=== PATIENT | female | born 1985 | race Hispanic/Latino ===

== ENCOUNTER 2018-02-11 12:16 | Emergency (ER) | payer OTHER, SELFPAY ==
[2018-02-11] MEDS ORDERED: HYDROMORPHONE HCL 1 MG/ML INJ ONE (12:33)
[2018-02-11] MEDS ORDERED: HYDROMORPHONE HCL 0.5 MG/0.5 ML INJ ONE (12:34)
[2018-02-11] MEDS ORDERED: predniSONE 20 MG TAB ONE (12:35)
--- NOTE | 2018-02-11 13:12 | EDPHYS ---
Physician Documentation [facility] Name: Nnacy Duarte Age: 32 yrs Sex: Female : 1985 Arrival Date: 02/11/2018 Time: 12:17 Bed 5 Private MD: ED Physician Jluis Pantoja HPI: 02/11 13:06 This 32 yrs old Female presents to ER via Stretcher with complaints of Back gs Pain. 13:06 The patient presents with pain that is acute. The symptoms are located in the low back. gs Onset: The symptoms/episode began/occurred acutely, 3 day(s) ago, and became worse. The pain radiates to the lateral aspect of right thigh. Associated signs and symptoms: Pertinent negatives: constipation, incontinence, urinary retention. Modifying factors: the patient symptoms are aggravated by any movement, bending. Severity of symptoms: At their worst the symptoms were severe, in the emergency department the symptoms are unchanged. The patient has experienced similar episodes in the past, a few times. Historical: - Allergies: 12:20 No Known Allergies; rk2 - PSHx: 12:54 Cholecystectomy; ; umbilical hernia repair; sg - Immunization history:: Adult Immunizations up to date, Pneumococcal vaccine is not up to date, Flu vaccine is not up to date. - Ebola Screening: : Patient negative for fever greater than or equal to 101.5 degrees Fahrenheit, and additional compatible Ebola Virus Disease symptoms. - Social history:: Smoking status: Patient/guardian denies using tobacco. ROS: 13:06 All other systems are negative. gs Exam: 13:06 Head/Face: Normocephalic, atraumatic. Eyes: Pupils equal round and reactive to light, gs extra-ocular motions intact. Lids and lashes normal. Conjunctiva and sclera are non-icteric and not injected. Cornea within normal limits. Periorbital areas with no swelling, redness, or edema. ENT: Nares patent. No nasal discharge, no septal abnormalities noted. Tympanic membranes are normal and external auditory canals are clear. Oropharynx with no redness, swelling, or masses, exudates, or evidence of obstruction, uvula midline. Mucous membranes moist. Neck: Trachea midline, no thyromegaly or masses palpated, and no cervical lymphadenopathy. Supple, full range of motion without nuchal rigidity, or vertebral point tenderness. No Meningismus. Chest/axilla: Normal chest wall appearance and motion. Nontender with no deformity. No lesions are appreciated. Cardiovascular: Regular rate and rhythm with a normal S1 and S2. No gallops, murmurs, or rubs. Normal PMI, no JVD. No pulse deficits. Respiratory: Lungs have equal breath sounds bilaterally, clear to auscultation and percussion. No rales, rhonchi or wheezes noted. No increased work of breathing, no retractions or nasal flaring. Abdomen/GI: Soft, non-tender, with normal bowel sounds. No distension or tympany. No guarding or rebound. No evidence of tenderness throughout. Skin: Warm, dry with normal turgor. Normal color with no rashes, no lesions, and no evidence of cellulitis. 13:06 Constitutional: The patient appears alert, awake, uncomfortable. 13:06 Back: pain, that is moderate, of the right low back, Straight leg raises: right lower extremity illicits pain, at 30 degrees. 13:06 Musculoskeletal/extremity: Circulation is intact in all extremities. Sensation intact. 13:06 Neuro: Cranial nerves: grossly normal, Cerebellar function: is grossly normal, Motor: is normal, strength is normal, Sensation: no obvious gross deficits, no acute changes, pin prick testing is normal, Deep tendon reflexes are 2+ (normal) in the right patellar, right Achilles, left patellar and left Achilles. Vital Signs: 12:20 BP 157 / 108; Pulse 94; Resp 19; Temp 98.0; Pulse Ox 99% on R/A; Weight 145.15 kg; rk2 MDM: 12:26 Patient medically screened. 13:06 Differential diagnosis: chronic back pain, ruptured disc, sprain. Data reviewed: vital gs signs, nurses notes. Response to treatment: the patient's symptoms have markedly improved after treatment, and as a result, I will discharge patient. 14:05 Counseling: I had a detailed discussion with the patient and/or guardian regarding: the gs presence of at least one elevated blood pressure reading (>120/80) during this emergency department visit. Special discussion: I have referred the patient to see his PCP for further evaluation of high blood pressure. Administered Medications: 12:38 Drug: predniSONE 40 mg Route: PO; sg 15:43 Follow up: Response: No adverse reaction; Pain is decreased ss 12:38 Drug: Dilaudid 1.5 mg Route: IM; Site: right deltoid; sg 15:43 Follow up: Response: No adverse reaction; Pain is decreased ss Disposition: 02/11/18 13:12 Discharged to Home. Impression: Radiculopathy, lumbosacral region. - Condition is Stable. - Discharge Instructions: Lumbosacral Radiculopathy. - Prescriptions for Naprosyn 500 mg Oral Tablet - take 1 tablet by ORAL route 2 times per day take with food; 14 tablet. Prednisone 20 mg Oral Tablet - take 1 tablet by ORAL route once daily for 5 days; 5 tablet. Tylenol- Codeine #4 300-60 mg Oral Tablet - take 1 tablet by ORAL route every 6 hours As needed; 12 tablet. - Medication Reconciliation Form, Thank You Letter, Antibiotic Education, Prescription Opioid Use form. - Follow up: Jordon López MD; When: 2 - 3 days; Reason: Re-evaluation by your physician. Signatures: Jose R Smalls RN RN Diane Ivory RN RN Jluis Pantoja MD MD Lacey Ordoñez RN RN rk2 Corrections: (The following items were deleted from the chart) 15:44 13:12 02/11/2018 13:12 Discharged to Home. Impression: Radiculopathy, lumbosacral ss region. Condition is Stable. Forms are Medication Reconciliation Form, Thank You Letter, Antibiotic Education, Prescription Opioid Use. Follow up: Jordon López; When: 2 - 3 days; Reason: Re-evaluation by your physician.
--- NOTE | 2018-02-11 13:12 | ER ---
Nurse's Notes [facility] Name: Nancy Duarte Age: 32 yrs Sex: Female : 1985 Arrival Date: 02/11/2018 Time: 12:17 Bed 5 Private MD: Diagnosis: Radiculopathy, lumbosacral region Presentation: 02/11 12:18 Presenting complaint: Patient states: pt. arrived by pv. c/o lower back pain radiating rk2 down right leg. Has hx of chronic back pain. Onset x 3 days worse today. Transition of care: patient was not received from another setting of care. Onset of symptoms was February 11, 2018. Risk Assessment: Do you want to hurt yourself or someone else? Patient reports no desire to harm self or others. Initial Sepsis Screen: Does the patient meet any 2 criteria? No. Patient's initial sepsis screen is negative. Does the patient have a suspected source of infection? No. Patient's initial sepsis screen is negative. Care prior to arrival: None. 12:18 Method Of Arrival: Stretcher rk2 12:18 Acuity: NORMA 4 rk2 Triage Assessment: 12:21 General: Appears in no apparent distress. uncomfortable, obese, well nourished, rk2 Behavior is calm, cooperative. Pain: Complains of pain in back. Musculoskeletal: Historical: - Allergies: 12:20 No Known Allergies; rk2 - PSHx: 12:54 Cholecystectomy; ; umbilical hernia repair; sg - Immunization history:: Adult Immunizations up to date, Pneumococcal vaccine is not up to date, Flu vaccine is not up to date. - Ebola Screening: : Patient negative for fever greater than or equal to 101.5 degrees Fahrenheit, and additional compatible Ebola Virus Disease symptoms. - Social history:: Smoking status: Patient/guardian denies using tobacco. Screenin:43 Abuse screen: Denies threats or abuse. Denies injuries from another. Nutritional ss screening: No deficits noted. Tuberculosis screening: Never had TB. Fall Risk None identified. Assessment: 12:45 General: Appears in no apparent distress. comfortable, well groomed, well developed, sg well nourished, Behavior is calm, cooperative, appropriate for age. Pain: Complains of pain in back Pain does not radiate. Quality of pain is described as aching, sharp, stabbing. Neuro: Level of Consciousness is awake, alert, obeys commands, Oriented to person, place, time, situation, Microphone Operator are equal bilaterally Moves all extremities. Full function Gait is steady, Speech is normal, Facial symmetry appears normal. Cardiovascular: Heart tones S1 S2 present Capillary refill is brisk in bilateral fingers Patient's skin is warm and dry. Chest pain is denied. Respiratory: Airway is patent Respiratory effort is even, unlabored, Respiratory pattern is regular, symmetrical, Breath sounds are clear. GI: No signs and/or symptoms were reported involving the gastrointestinal system. : No signs and/or symptoms were reported regarding the genitourinary system. EENT: No signs and/or symptoms were reported regarding the EENT system. Derm: Skin is pink, warm \T\ dry. Musculoskeletal: Circulation, motion, and sensation intact. Range of motion: intact in all extremities, Swelling absent Reports pain in back. 13:14 Reassessment: attempted to get pt up to ambulate prior to dc to home, pt unable to get sg out of bed at this time, will try again. Vital Signs: 12:20 BP 157 / 108; Pulse 94; Resp 19; Temp 98.0; Pulse Ox 99% on R/A; Weight 145.15 kg; rk2 ED Course: 12:17 Patient arrived in ED. ss 12:18 Jluis Pantoja MD is Attending Physician. gs 12:20 Triage completed. rk2 12:41 Jose R Smalls, LESLIE is Primary Nurse. sg 12:45 No provider procedures requiring assistance completed. Patient did not have IV access sg during this emergency room visit. 12:45 Patient has correct armband on for positive identification. Placed in gown. Bed in low sg position. Side rails up X2. 13:09 Jordon López MD is Referral Physician. gs 15:42 walker given to patient on discharge per Dr. Pantoja request. ss Administered Medications: 12:38 Drug: predniSONE 40 mg Route: PO; sg 15:43 Follow up: Response: No adverse reaction; Pain is decreased ss 12:38 Drug: Dilaudid 1.5 mg Route: IM; Site: right deltoid; sg 15:43 Follow up: Response: No adverse reaction; Pain is decreased ss Outcome: 13:12 Discharge ordered by . gs 15:42 Discharged to home via wheelchair. ss 15:42 Condition: good 15:42 Discharge instructions given to patient, family, Instructed on discharge instructions, follow up and referral plans. medication usage, Demonstrated understanding of instructions, follow-up care, medications, Prescriptions given X 3. 15:44 Patient left the ED. Signatures: Jose R Smalls RN RN sg Diane Ivory RN RN ss Jluis Pantoja MD MD Lacey Ordoñez RN RN rk2
[2018-02-11] MEDS ORDERED: ONDANSETRON 4 MG/2 ML VIAL ONE (14:30)
[2018-02-11] MEDS ORDERED: ONDANSETRON 4 MG (ODT) TAB ONE (14:30)
== END 2018-02-11 15:44 | disposition home or self-care (01) ==
LOC: ER 12:16
DX: M54.17 Radiculopathy, lumbosacral region (principal)
CPT/HCPCS: 96372; 99283; J1170; J2405; J7512

== ENCOUNTER 2021-06-15 11:03 | Emergency (ER) | payer BC ==
[2021-06-15] MEDS ORDERED: ACETAMINOPHEN 325 MG TABLET ONE (13:28)
[2021-06-15 14:08] LABS: Urine Blood Negative (Negative); Urine Glucose Negative (Negative); Urine Protein 2+ (Negative); Urine Specific Gravity >=1.030 (1.005-1.030); Urine pH 5.5 (5.0-7.0)
[2021-06-15 14:23] LABS: Urine Specific Gravity/Preg >1.030 (1.005-1.030)
[2021-06-15] MEDS ORDERED: KETOROLAC 30 MG/ML INJ ONE (14:38)
--- NOTE | 2021-06-15 14:46 | ER ---
Nurse's Notes [facility] Name: Nancy Duarte Age: 36 yrs Sex: Female : 1985 Arrival Date: 06/15/2021 Time: 11:08 Bed 12 Private MD: Ayaka Diaz Diagnosis: Other sprain of left foot Presentation: 06/15 11:31 Chief complaint: Patient states: About an hour ago pt tripped over a cat and states vg1 rolled Left ankle inward and when stepped forward heard a 'crunch' and felt it near the top side of Left foot. States is unable to move left big toe. Coronavirus screen: Vaccine status: Patient reports receiving the 2nd dose of the covid vaccine. Ebola Screen: Patient negative for fever greater than or equal to 101.5 degrees Fahrenheit, and additional compatible Ebola Virus Disease symptoms. Initial Sepsis Screen: Does the patient meet any 2 criteria? No. Patient's initial sepsis screen is negative. Does the patient have a suspected source of infection? No. Patient's initial sepsis screen is negative. Risk Assessment: Do you want to hurt yourself or someone else? Patient reports no desire to harm self or others. Onset of symptoms was June 15, 2021. 11:31 Method Of Arrival: Wheelchair vg1 11:31 Acuity: NORMA 4 vg1 Triage Assessment: 11:33 General: Appears in no apparent distress. uncomfortable, Behavior is calm, cooperative. vg1 Pain: Complains of pain in dorsum of left foot. Musculoskeletal: Circulation, motion, and sensation intact. 15:48 Injury Description: Bruise. 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 - Social history:: Smoking status: Patient denies any tobacco usage or history of. Screenin:23 Abuse screen: Denies threats or abuse. Nutritional screening: No deficits noted. ll1 Tuberculosis screening: No symptoms or risk factors identified. Fall Risk Ambulatory Aid- Crutches/Cane/Walker (15 pts). Gait- Impaired (20 pts.). Total [place] Fall Scale indicates Low Risk Score (25-44 pts). Fall prevention measures have been instituted. Side Rails Up X 2 Frequent Obs/Assesments occuring As available Patient and Family Educated on Fall Prevention Program and strategies. Assessment: 12:30 Reassessment: No changes from previously documented assessment. Patient and/or family ll1 updated on plan of care and expected duration. Pain level reassessed. Patient is alert, oriented x 3, equal unlabored respirations, skin warm/dry/pink. 13:30 Reassessment: No changes from previously documented assessment. Patient and/or family ll1 updated on plan of care and expected duration. Pain level reassessed. Patient is alert, oriented x 3, equal unlabored respirations, skin warm/dry/pink. 14:30 Reassessment: No changes from previously documented assessment. Patient and/or family ll1 updated on plan of care and expected duration. Pain level reassessed. Patient is alert, oriented x 3, equal unlabored respirations, skin warm/dry/pink. 15:23 Reassessment: No changes from previously documented assessment. Patient and/or family ll1 updated on plan of care and expected duration. Pain level reassessed. Patient is alert, oriented x 3, equal unlabored respirations, skin warm/dry/pink. Vital Signs: 11:31 BP 136 / 80; Pulse 104; Resp 18; Temp 97.8; Pulse Ox 100% ; Weight 153.31 kg; Height 5 vg1 ft. 6 in. (167.64 cm); Pain 6/10; 11:31 Body Mass Index 54.55 (153.31 kg, 167.64 cm) vg1 ED Course: 11:08 Patient arrived in ED. mr 11:08 Ayaka Diaz is Private Physician. mr 11:13 Davonte Morton PA is PHCP. jmm 11:13 Pam May MD is Attending Physician. jmm 11:33 Triage completed. vg1 11:33 Arm band placed on. vg1 11:53 Jerome Nicholas, LESLIE is Primary Nurse. ll1 13:30 Patient has correct armband on for positive identification. Bed in low position. Call ll1 light in reach. Cardiac monitoring not applicable on this patient. 13:50 Ankle Left 3 View XRAY In Process Unspecified. EDMS 13:50 Foot Left 3 View XRAY In Process Unspecified. EDMS 14:45 Paolo Loera MD is Referral Physician. m 15:18 3D boot applied to left foot. ll1 15:23 No provider procedures requiring assistance completed. Patient did not have IV access ll1 during this emergency room visit. Administered Medications: 13:04 Drug: Tylenol 650 mg Route: PO; ll1 15:48 Follow up: Response: No adverse reaction ll1 14:18 Drug: Ketorolac 30 mg Route: IM; Site: left deltoid; ll1 15:48 Follow up: Response: No adverse reaction ll1 Outcome: 14:45 Discharge ordered by . jm 15:23 Patient left the ED. ll1 15:23 Discharged to home ambulatory. ll1 15:23 Condition: stable 15:23 Discharge instructions given to patient, Instructed on discharge instructions, follow up and referral plans. no drinking with medication, no driving heavy equipment, medication usage, crutch walking, Demonstrated understanding of instructions, follow-up care, medications, crutch walking, Prescriptions given X 2. Signatures: Dispatcher [employer] EDWV Davonte Morton PA PA jmm Rivera, Mary mr Garcia, Victoria, RN RN vg1 Jerome Nicholas, LESLIE RN ll1 Corrections: (The following items were deleted from the chart) 15:46 15:30 Reassessment: No changes from previously documented assessment. Patient and/or ll1 family updated on plan of care and expected duration. Pain level reassessed. Patient is alert, oriented x 3, equal unlabored respirations, skin warm/dry/pink. ll1
--- NOTE | 2021-06-15 14:46 | EDPHYS ---
Physician Documentation [facility] Name: Nancy Duarte Age: 36 yrs Sex: Female : 1985 Arrival Date: 06/15/2021 Time: 11:08 Bed 12 Private MD: Ayaka Diaz ED Physician Pam May HPI: 06/15 11:36 This 36 yrs old Female presents to ER via Wheelchair with complaints of Foot jmm Injury. 11:36 The patient presents with an injury, pain. Onset: The symptoms/episode began/occurred jmm acutely, today. Modifying factors: The symptoms are alleviated by nothing. the symptoms are aggravated by nothing. Associated signs and symptoms: Pertinent positives: swelling. This is a 36-year-old female with a history of diabetes mellitus, hypertension the presents emerge department with complaints of left foot pain which occurred as she was attempting to not stepped on a cat. Patient states she missed stepped flexing her left foot forward and felt a crunch. Denies other known injury. 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 - Social history:: Smoking status: Patient denies any tobacco usage or history of. ROS: 11:36 Constitutional: Negative for fever, chills, and weight loss, Cardiovascular: Negative jmm for chest pain, palpitations, and edema, Respiratory: Negative for shortness of breath, cough, wheezing, and pleuritic chest pain. 11:36 MS/extremity: Positive for injury or acute deformity. 11:36 All other systems are negative. Exam: 11:36 Constitutional: This is a well developed, well nourished patient who is awake, alert, jmm and in no acute distress. Head/Face: atraumatic. Eyes: EOMI, no conjunctival erythema appreciated ENT: Moist Mucus Membranes Neck: Trachea midline, Supple Chest/axilla: Normal chest wall appearance and motion. Cardiovascular: Regular rate and rhythm. No edema appreciated Respiratory: Normal respirations, no respiratory distress appreciated Abdomen/GI: Non distended, soft Back: Normal ROM Skin: General appearance color normal 11:36 Musculoskeletal/extremity: ROM: intact in all extremities, left foot pain on palpation, no obvious deformities, mild swelling appreciated, compartments are soft, full dorsalis pulse, NVI. 11:36 Skin: Appearance: Color: normal in color. 11:36 Neuro: Orientation: is normal, Mentation: is normal, Memory: is normal. 11:36 Psych: Behavior/mood is pleasant, cooperative. Vital Signs: 11:31 BP 136 / 80; Pulse 104; Resp 18; Temp 97.8; Pulse Ox 100% ; Weight 153.31 kg; Height 5 vg1 ft. 6 in. (167.64 cm); Pain 6/10; 11:31 Body Mass Index 54.55 (153.31 kg, 167.64 cm) vg1 MDM: 12:42 Patient medically screened. [facility] 14:44 Data reviewed: vital signs, nurses notes. Counseling: I had a detailed discussion with jaden the patient and/or guardian regarding: the historical points, exam findings, and any diagnostic results supporting the discharge/admit diagnosis, radiology results, the need for outpatient follow up, to return to the emergency department if symptoms worsen or persist or if there are any questions or concerns that arise at home. 06/15 14:08 Order name: Urine Dipstick-Ancillary; Complete Time: 14:11 [facility] 06/15 14:10 Order name: Urine --Ancillary (enter results); Complete Time: 14:25 06/15 11:36 Order name: Ankle Left 3 View XRAY; Complete Time: 15:09 [facility] 06/15 11:36 Order name: Foot Left 3 View XRAY; Complete Time: 15:09 [facility] 06/15 13:52 Order name: Urine Dipstick-Ancillary (obtain specimen); Complete Time: 14:10 [facility] 06/15 13:52 Order name: Urine Test (obtain specimen); Complete Time: 14:10 [facility] 06/15 14:30 Order name: Misc. Order: orthoshoe, crutches; Complete Time: 15:18 [facility] Administered Medications: 13:04 Drug: Tylenol 650 mg Route: PO; ll1 15:48 Follow up: Response: No adverse reaction ll1 14:18 Drug: Ketorolac 30 mg Route: IM; Site: left deltoid; ll1 15:48 Follow up: Response: No adverse reaction ll1 Disposition: 18:32 Co-signature as Attending Physician, Pam AVALOS/CSR RETAIL's history reviewed, ma2 patient interviewed, and examined. I agree with assessment and care plan and confirm the diagnosis (es) above. Disposition Summary: 06/15/21 14:45 Discharge Ordered Location: Home [facility] Condition: Stable [facility] Diagnosis - Other sprain of left foot [facility] Followup: [facility] - With: Paolo Loera MD - When: 2 - 3 days - Reason: Recheck today's complaints, Continuance of care, Re-evaluation by your physician Discharge Instructions: - Discharge Summary Sheet [facility] - Foot Sprain [facility] Forms: - Medication Reconciliation Form [facility] - Thank You Letter [facility] - Antibiotic Education [facility] - Prescription Opioid Use [facility] Prescriptions: - Ibuprofen 800 mg Oral Tablet - take 1 tablet by ORAL route every 8 hours As needed take with food; 30 tablet; [facility] Refills: 0, Product Selection Permitted - orphenadrine citrate 100 mg Oral Tablet Sustained Release - take 1 tablet by ORAL route 2 times per day As needed; 20 tablet; Refills: 0, [facility] Product Selection Permitted Signatures: Dispatcher [employer] Davonte Medeiros PA PA jmm Alzahri, Mohammad, MD MD ma2 Thi Jerez RN RN vg1 Jerome Nicholas RN RN ll1
--- NOTE | 2021-06-15 15:03 | RAD REPORT ---
EXAM DESCRIPTION: RAD - Ankle Left 3 View -06/15/2021 1:49 pm CLINICAL HISTORY: Left ankle pain status post injury FINDINGS: No fracture or dislocation is seen.
--- NOTE | 2021-06-15 15:07 | RAD REPORT ---
EXAM DESCRIPTION: RAD - Foot Left 3 View - 06/15/2021 1:49 pm CLINICAL HISTORY: Left Foot pain status post injury FINDINGS: No fracture or dislocation is seen.
[2021-06-15 15:45] VITALS: BP 136/80; TEMP 97.8; O2SAT 100
[2021-06-15] MEDS ORDERED: ONDANSETRON 4 MG/2 ML VIAL ONE (16:26)
[2021-06-15] MEDS ORDERED: MORPHINE 4 MG/ML SYR ONE (16:26)
== END 2021-06-15 15:23 | disposition home or self-care (01) ==
LOC: ER 11:03
DX: S93.692A Other sprain of left foot, initial encounter (principal); I10 Essential (primary) hypertension; E11.9 Type 2 diabetes mellitus without complications
CPT/HCPCS: 81025; 81003; 73630; 73610; 96372; 99284; J2405

== ENCOUNTER → 2023-09-26 | Emergency (ER) | payer BC ==
[2023-09-26 17:14] LABS: Absolute Lymphocytes (CBC) 3.3 K/uL (0.7-4.9); Hematocrit 36.2 % (36.0-45.0); Lymphocytes % 26.9 % (15.3-44.8); MCV 80.1 fL (80-100); Platelets 344 thou/uL (152-406); RBC Red Blood Cell Count 4.52 M/uL (3.86-4.86)
[2023-09-26 17:17] LABS: Specific Gravity 1.019 (1.005-1.030); Urine Bacteria <20 /HPF (<20); Urine Bilirubin NEGATIVE (Negative); Urine Blood Trace (Negative); Urine Clarity Extremely Turbid (Clear); Urine Color Light-Yellow (Yellow); Urine Glucose NEGATIVE (Negative); Urine Mucus Slight /HPF (None Seen); Urine Protein TRACE (Negative); Urine RBC <5 /HPF (None Seen); Urine Urobilinogen Normal (Normal); Urine pH 5.5 (5.0-7.0)
[2023-09-26 17:21] LABS: Albumin 3.4 g/dL (3.4-5.0); Bilirubin Total 0.4 mg/dL (0.2-1.0); Potassium 3.5 mEq/L (3.5-5.1)
--- NOTE | 2023-09-26 17:49 | RAD REPORT ---
EXAM DESCRIPTION: CT - Abdomen Pelvis Wo Contrast - 09/26/2023 5:34 pm CLINICAL HISTORY: Abdominal pain. ABD PAIN COMPARISON: CTSTONE PROTOCOL dated 09/14/2013 TECHNIQUE: CT imaging of the abdomen and pelvis was performed without contrast. Solid organ, bowel a nd vascular assessment is limited due to lack of IV and oral contrast. All CT scans are performed using dose optimization technique as appropriate and may include automated exposure control or mA/KV adjustment according to patient size. FINDINGS: The lower lung spring are clear.Cholecystectomy clips. The liver, spleen, pancreas, adrenal glands and kidneys are within normal limits for a limited non-co ntrast examination. No bowel obstruction, free air, free fluid or abscess. Moderate fat containing umbilical hernia, with 2 components evident. There is a short appendix noted. The osseous structures are within normal limits. IMPRESSION: Moderate fat containing umbilical hernia is present. This appears to have 2 components u mbilical and supraumbilical. No bowel involvement. A limited non-contrast examination was performed as detailed.
--- NOTE | 2023-09-26 18:16 | EDPHYS ---
Physician Documentation [facility] Name: Nancy Duarte Age: 38 yrs Sex: Female : 1985 Arrival Date: 09/26/2023 Time: 15:39 Bed 13 Private MD: ED Physician Saravanan Watson HPI: 09/26 16:07 This 38 yrs old Female presents to ER via Ambulatory with complaints of kb Breathing Difficulty, Hernia, stomach pain. 16:07 Patient is a 38-year-old female who presents for abdominal pain that started 6 days kb ago. States she has a known umbilical hernia, went to Dr. Watters for evaluation and is supposed to have surgery in a couple of weeks for repair. States he pushed on the hernia to see if it would reduce in the office and she has had pain since then. Also reports constipation with intermittent diarrhea.. Historical: - Allergies: 15:51 No Known Allergies; tl4 - PMHx: 15:51 acid reflux; diabetes mellitus; Hypertensive disorder; tl4 - Immunization history:: Adult Immunizations unknown. - Social history:: Smoking status: Patient denies any tobacco usage or history of. ROS: 16:10 Constitutional: Negative for fever, chills, and weight loss, kb 16:10 Abdomen/GI: Positive for abdominal pain, nausea, constipation, 16:10 All other systems are negative, Exam: 16:11 Constitutional: This is a well developed, well nourished patient who is awake, alert, kb and in no acute distress. Head/Face: Normocephalic, atraumatic. ENT: Moist Mucous membranes Cardiovascular: Regular rate Respiratory: Respirations even and unlabored. No increased work of breathing. Talking in full sentences Abdomen/GI: Soft, non-tender. No distention Skin: Warm, dry with normal turgor. Normal color. MS/ Extremity: Pulses equal, no cyanosis. Neurovascular intact. Full, normal range of motion. Neuro: Awake and alert, GCS 15, oriented to person, place, time, and situation. Moves all extremities. Normal gait. Vital Signs: 15:48 BP 147 / 100; Pulse 106; Resp 18; Temp 98.1; Pulse Ox 100% on R/A; Weight 148.78 kg; tl4 Height 5 ft. 6 in. ; Pain 10/10; 17:42 BP 126 / 68; Pulse 87; Resp 17 S; Pulse Ox 100% on R/A; kc6 15:48 Body Mass Index 52.94 (148.78 kg, 167.64 cm) tl4 15:48 Pain Scale: Adult tl4 MDM: 15:43 Patient medically screened. kb 16:11 Data reviewed: vital signs, nurses notes. kb 18:14 Differential diagnosis: bowel obstruction, diverticulitis, gastritis, non-specific abd kb pain, hernia. Counseling: I had a detailed discussion with the patient and/or guardian regarding the historical points, exam findings, and any diagnostic results supporting the discharge/admit diagnosis, lab results, radiology results, the need for outpatient follow up, a general surgeon, to return to the emergency department if symptoms worsen or persist or if there are any questions or concerns that arise at home. 09/26 15:47 Order name: CBC with Diff; Complete Time: 17:22 kb 09/26 15:47 Order name: CMP; Complete Time: 17:22 kb 09/26 15:47 Order name: Lipase; Complete Time: 17:22 kb 09/26 15:47 Order name: Test, Urine; Complete Time: 17:22 kb 09/26 15:47 Order name: Urinalysis w/ reflexes; Complete Time: 17:22 kb 09/26 15:47 Order name: CT Abd/Pelvis - Without Contrast; Complete Time: 17:52 kb 09/26 15:47 Order name: IV Saline Lock; Complete Time: 17:03 kb 09/26 15:47 Order name: Labs collected and sent; Complete Time: 17:03 kb Administered Medications: No medications were administered Disposition Summary: 09/26/23 18:15 Discharge Ordered Notes: Location: Home kb Condition: Stable kb Diagnosis - Umbilical hernia without obstruction or gangrene kb Followup: kb - With: Emergency Department - When: As needed - Reason: Worsening of condition Followup: kb - With: Private Physician - When: 2 - 3 days - Reason: Recheck today's complaints, Continuance of care, Re-evaluation by your physician Discharge Instructions: - Discharge Summary Sheet kb - Hernia, Adult, [id number] kb Forms: - Medication Reconciliation Form kb - Thank You Letter kb - Antibiotic Education kb - Prescription Opioid Use kb - Patient Portal Instructions kb - Leadership Thank You Letter kb Signatures: Dispatcher [employer] EDMS Poonam Keene, CELL COVERER-C CELL COVERER-Ckb Isaac Aayush tl4 Corrections: (The following items were deleted from the chart) 16:08 16:07 Patient is a 44-year-old female who presents for abdominal pain that started 6 kb days ago. States she has a known umbilical hernia, went to Dr. Watters for evaluation and is supposed to have surgery in a couple of weeks for repair. States he pushed on the hernia to see if it would reduce in the office and she has had pain since then. Also reports constipation with intermittent diarrhea.. kb
--- NOTE | 2023-09-26 18:16 | ER ---
Nurse's Notes [facility] Name: Nancy Duarte Age: 38 yrs Sex: Female : 1985 Arrival Date: 09/26/2023 Time: 15:39 Bed 13 Private MD: Diagnosis: Umbilical hernia without obstruction or gangrene Presentation: 09/26 15:48 Chief complaint: Patient states: Pt c/o increased upper abdominal pain after a surgeon tl4 attempted to manipulate her hernia on 09/20/23. Coronavirus screen: At this time, the client does not indicate any symptoms associated with coronavirus-19. Ebola Screen: No symptoms or risks identified at this time. Initial Sepsis Screen: Does the patient meet any 2 criteria? No. Patient's initial sepsis screen is negative. Does the patient have a suspected source of infection? No. Patient's initial sepsis screen is negative. Risk Assessment: Do you want to hurt yourself or someone else? Patient reports no desire to harm self or others. Onset of symptoms was September 20, 2023. 15:48 Method Of Arrival: Ambulatory tl4 15:48 Acuity: NORMA 3 tl4 Triage Assessment: 16:05 General: Appears uncomfortable, Behavior is calm, cooperative. Pain: Complains of pain tl4 in abdomen. EENT: No deficits noted. No signs and/or symptoms were reported regarding the EENT system. Neuro: No deficits noted. Cardiovascular: No deficits noted. Respiratory: Reports pain with movement Onset: The symptoms/episode began/occurred gradually, the patient has mild shortness of breath. GI: Reports lower abdominal pain, upper abdominal pain, constipation, nausea. : No deficits noted. No signs and/or symptoms were reported regarding the genitourinary system. Derm: No deficits noted. No signs and/or symptoms reported regarding the dermatologic system. Historical: - Allergies: 15:51 No Known Allergies; tl4 - PMHx: 15:51 acid reflux; diabetes mellitus; Hypertensive disorder; tl4 - Immunization history:: Adult Immunizations unknown. - Social history:: Smoking status: Patient denies any tobacco usage or history of. Screenin:00 [facility] ED Fall Risk Assessment (Adult) History of falling in the last 3 months, kc6 including since admission No falls in past 3 months (0 pts) Confusion or Disorientation No (0 pts) Intoxicated or Sedated No (0 pts) Impaired Gait No (0 pts) Mobility Assist Device Used No (0 pt) Altered Elimination No (0 pt) Score/Fall Risk Level 0 - 2 = Low Risk. Abuse screen: Denies threats or abuse. Denies injuries from another. Nutritional screening: No deficits noted. Tuberculosis screening: No symptoms or risk factors identified. Assessment: 17:00 General: Appears in no apparent distress. uncomfortable, obese, well groomed, well kc6 developed, Behavior is calm, cooperative, appropriate for age. Pain: Complains of pain in right upper quadrant and left upper quadrant. Neuro: Level of Consciousness is awake, alert, obeys commands, Oriented to person, place, time, situation, Appropriate for age. Cardiovascular: Denies chest pain, Capillary refill < 3 seconds Rhythm is sinus rhythm. Respiratory: Airway is patent Trachea midline Respiratory effort is even, unlabored, Respiratory pattern is regular, symmetrical, Breath sounds are clear bilaterally. GI: Abdomen is round non-distended, obese, Bowel sounds present X 4 quads. Abd is soft X 4 quads Abdomen is tender to palpation in right upper quadrant and left upper quadrant Patient currently denies diarrhea, nausea, vomiting. : No signs and/or symptoms were reported regarding the genitourinary system. Urine is cloudy. EENT: No signs and/or symptoms were reported regarding the EENT system. Derm: No signs and/or symptoms reported regarding the dermatologic system. Skin is intact, is healthy with good turgor, Skin is pink, warm \T\ dry. Musculoskeletal: No signs and/or symptoms reported regarding the musculoskeletal system. Circulation, motion, and sensation intact. Capillary refill < 3 seconds, Range of motion: intact in all extremities. Vital Signs: 15:48 BP 147 / 100; Pulse 106; Resp 18; Temp 98.1; Pulse Ox 100% on R/A; Weight 148.78 kg; tl4 Height 5 ft. 6 in. ; Pain 10/10; 17:42 BP 126 / 68; Pulse 87; Resp 17 S; Pulse Ox 100% on R/A; kc6 15:48 Body Mass Index 52.94 (148.78 kg, 167.64 cm) tl4 15:48 Pain Scale: Adult tl4 ED Course: 15:40 Patient arrived in ED. ra3 15:41 Poonam Keene FNP-C is [facility]. kb 15:41 Saravanan Watson MD is Attending Physician. kb 15:51 Triage completed. tl4 15:51 Arm band placed on right wrist. tl4 16:22 Lyubov Padilla, RN is Primary Nurse. kc6 17:00 Patient has correct armband on for positive identification. Bed in low position. Call kc6 light in reach. Side rails up X 1. Client placed on continuous cardiac and pulse oximetry monitoring. NIBP monitoring applied. 17:00 Inserted saline lock: 20 gauge in left antecubital area, using aseptic technique. Blood kc6 collected. Patient maintains SpO2 saturation greater than 95% on room air. 17:34 CT Abd/Pelvis - Without Contrast In Process Unspecified. EDMS 18:31 No provider procedures requiring assistance completed. IV discontinued, intact, kc6 bleeding controlled, No redness/swelling at site. Pressure dressing applied. Administered Medications: No medications were administered Medication: 18:32 VIS not applicable for this client. kc6 Outcome: 18:15 Discharge ordered by MD. kb 18:31 Discharged to home ambulatory, kc6 18:31 Condition: good 18:31 Discharge instructions given to patient, Instructed on discharge instructions, follow up and referral plans. Demonstrated understanding of instructions, follow-up care, 18:32 Patient left the ED. kc6 Signatures: Dispatcher [employer] EDMS Poonam Keene FNP-C [employer]-Ckb Lyubov Padilla RN RN kc6 Logdahl, Aayush tl4 Regine Cooley 3
[2023-09-27 04:20] VITALS: BP 126/68; TEMP 98.1; O2SAT 100
== END ==
LOC: ER 15:39
DX: K43.9 Ventral hernia without obstruction or gangrene (principal); K59.00 Constipation, unspecified
CPT/HCPCS: 36415; 74176; 80053; 81001; 81025; 83690; 85025

== ENCOUNTER 2023-10-16 07:56 | Observation (INO) | payer BC ==
[2023-10-16] MEDS ORDERED: ONDANSETRON 4 MG/2 ML VIAL ONE (08:31)
[2023-10-16] MEDS ORDERED: dexAMETHasone 10 MG/ML VIAL ONE ×2 (08:31→11:23)
[2023-10-16] MEDS ORDERED: propofoL 200 MG/20 ML VIAL IV ONE (08:31)
[2023-10-16] MEDS ORDERED: KETOROLAC 30 MG/ML INJ ONE (08:31)
[2023-10-16] MEDS ORDERED: MIDAZOLAM HCL 2 MG/2 ML INJ ONE (08:32)
[2023-10-16] MEDS ORDERED: FENTANYL CITR 100 MCG/2 ML ONE (08:32)
[2023-10-16] MEDS ORDERED: ROCURONIUM 50 MG/5 ML VIAL IV ONE ×2 (08:32→10:15)
[2023-10-16] MEDS ORDERED: LIDOCAINE 2% MPF 5 ML VIAL ONE (08:32)
[2023-10-16] MEDS: NA CHLORIDE 0.9% 1,000 ML ONE ×2 (08:35→10:41)
[2023-10-16] MEDS: CEFAZOLIN SODIUM 1 GM/VIAL ONE ×2 (09:16)
--- NOTE | 2023-10-16 11:03 | EKG ---
Test Date: 2023-10-13 Test Time: 16:31:31 Electrical Systems Design Engineer: DANIEL MEASUREMENT RESULTS: Intervals: Rate: 103 MD: 136 QRSD: 82 QT: 342 QTc: 448 [place]: P: 26 MD: 136 QRS: 51 T: 52 INTERPRETIVE STATEMENTS: Sinus tachycardia with premature atrial complexes with aberrant conduction Otherwise normal ECG Compared to ECG 11/24/2020 12:55:43 Atrial premature complex(es) now present Aberrant conduction of supraventricular beat(s) now present Sinus rhythm no longer present Ventricular premature complex(es) no longer present Prolonged QT interval no longer present Electronically Signed On 10-16-23 10:58:54 PIPE MACHINE OPERATOR by Juno Sousa
[2023-10-16] MEDS ORDERED: EPINEPHRINE 1 MG/ML VIAL ONE (11:24)
[2023-10-16] MEDS ORDERED: GLYCOPYRROLATE 0.2 MG/ML SYR ONE (12:27)
[2023-10-16] MEDS ORDERED: NEOSTIGMINE 1 MG/ML -10 ML VIAL ONE (12:27)
[2023-10-16] MEDS ORDERED: HYDROMORPHONE HCL 1 MG/ML INJ IV PRN (12:48)
[2023-10-16] MEDS ORDERED: SODIUM CHLORIDE 0.9% 10ML INJ IV PRN (12:48)
--- NOTE | 2023-10-16 13:02 | P.BOP ---
Preoperative diagnosis: incarcerated incisional umbilical hernia Postoperative diagnosis: incarcerated ventral and umbilical hernias with extensive intrab adhesions Primary procedure: Laparoscopic repair incarcerated incisional umbilical and ventral hernias Secondary procedure: with mesh Other procedure(s): 2. Laparoscopic extensive intrabdominal adhesions Estimated blood loss: <30cc Specimen: multiple hernia sac Findings: as above, see dictation Anesthesia: General Complications: None Implants: [id number] ventralight ST with echo PS Transferred to: Recovery Room Condition: Good
[2023-10-16] MEDS: NA CHLORIDE 0.9% 1,000 ML IV SCH (14:00)
[2023-10-16 17:24] VITALS: O2SAT 99; BMI 54.1
[2023-10-16] MEDS: ONDANSETRON 4 MG/2 ML VIAL IV PRN (17:51)
[2023-10-16] MEDS ORDERED: CEFOXITIN 1 GM in NA CHLORIDE 0.9% 50 ML IVPB SCH (18:00)
[2023-10-16 18:14] VITALS: BP 126/74; TEMP 98.3
[2023-10-17] MEDS ORDERED: PANTOPRAZOLE 40 MG INJ IVP SCH (09:00)
[2023-10-18] MEDS ORDERED: ENOXAPARIN 40 MG/0.4 ML SQ SCH (09:00)
== END 2023-10-16 18:06 | disposition home or self-care (01) ==
LOC: OR 07:56 → 2ND 13:55
PROVIDERS: ADMIT Surgery; ATTEND Surgery
PROC: 0DNW4ZZ Release Peritoneum, Percutaneous Endoscopic Approach (ICD-10-PCS; 2023-10-16)
PROC: 0WUF4JZ Supplement Abdominal Wall with Synthetic Substitute, Percutaneous Endoscopic Approach (ICD-10-PCS; principal; 2023-10-16 09:15)
DX: K42.0 Umbilical hernia with obstruction, without gangrene (principal); K66.0 Peritoneal adhesions (postprocedural) (postinfection)
CPT/HCPCS: 49329; 93005; 36415; 84703; 82947 ×2; 88302; 94010; 49596; J2704; J2710; J2001; J2250; J3010; J1100 ×2; J0171; J1170; J2405 ×2; J7030 ×2; J0690 ×2; G0378; G0379